=== PATIENT | female | born 1975 | race Caucasian/White ===

== ENCOUNTER 2016-06-27 21:05 | Emergency (ER) | payer OTHER ==
[~2016-06-27] VITALS: Ht 160 cm; Wt 77.0 kg
[~2016-06-27 21:05] MED LIST: DIFL150T PO; DOXY100T PO; LORA10TA7 PO; Z.0.BCPILL PO
[2016-06-27 21:08] VITALS: BP 133/88; PULSE 89; RESP 15; TEMP 98.4; O2SAT 100
--- NOTE | 2016-06-27 22:53 | PD ---
HPI Chief Complaint: Bite or Sting Time Seen by Provider: 22:43 Travel History International Travel<30 days: No Contact w/Intl Traveler<30days: No Traveled to known affect area: No History of Present Illness HPI 41-year-old female presents for evaluation of dog bites. The patient reports that this afternoon her accidentally hit their 14-year-old dog. When the patient went to check on the dog the dog was frightened and bit her on the left hand. Been sustained a puncture wound on her right third finger when she was trying to open his mouth. She then brought the dog to the [facility]ares s[facility] and she came here. She is having pain and swelling in the left hand. Pain is a throbbing pain that is constant and worse with movement. Pain is worse with movement of the second and third fingers. No numbness or tingling. Last tetanus vaccination unknown. No other complaints. PFSH Past Medical History Medical History: Denies Significant Hx Diminished Hearing: No Immunizations Current: Yes (UNKNOWN) ?: Not Ectopic : Yes Past Surgical History Gynecologic Surgery: Yes (1995 ECTOPIC PREG) Hysterectomy: Yes Other Surgery: Yes (2004 RIGHT BREAST BX) Social History Alcohol Use: Yes (SOCIALLY) Tobacco Use: No Substance Use: No Allergies-Medications (Allergen,Severity, Reaction): Uncoded Allergies: ADVIL GEL (Allergy, Severe, THROAT/TOUNGE SWELLING, 06/27/16) WOOL (Allergy, Intermediate, 02/13/11) PAPER TAPE (Allergy, Unknown, BLISTERS, 01/29/03) Reported Meds & Prescriptions Reported Meds & Active Scripts Active Fluconazole 150 Mg Tab 150 Mg PO ONCE Augmentin (Amoxicillin-Clavulanate) 875-125 mg Tab 875 Mg PO BID 7 Days not for use in CrCl <30 ml/min. Lortab (Hydrocodone-Acetaminophen) 5-325 Mg Tab 1 Tab PO Q6H PRN Review of Systems Except as stated in HPI: all other systems reviewed are Neg Musculoskeletal: Positive: Limited ROM Skin: Positive Other (positive for puncture wounds, pain, bleeding, bruising) Neurologic: No: Paresthesia Physical Exam Narrative GENERAL: Well-nourished female who appears anxious. SKIN: Warm and dry. Puncture wounds noted to the left hand and right third finger. No large lacerations. No evidence of extensor tendon or flexor tendon injury. There is some bruising to the dorsal left hand. HEAD: Atraumatic. Normocephalic. EYES: Pupils equal and round. No scleral icterus. No injection or drainage. ENT: No nasal bleeding or discharge. Mucous membranes pink and moist. NECK: Trachea midline. No JVD. CARDIOVASCULAR: Regular rate and rhythm. No murmur appreciated. RESPIRATORY: No accessory muscle use. Clear to auscultation. Breath sounds equal bilaterally. MUSCULOSKELETAL: Skin as noted above with difficulty performing flexion and extension of the left second and third fingers secondary to pain. No evidence of extensor tendon puncture wound on examination. NEUROLOGICAL: Awake and alert. No obvious cranial nerve deficits. Motor grossly within normal limits. Normal speech. Data Data Last Documented VS Vital Signs Date Time Temp Pulse Resp B/P Pulse Ox O2 Delivery O2 Flow Rate FiO2 06/27/16 23:20 52 15 103/56 100 Room Air 06/27/16 21:08 98.4 Orders Acetamin-Hydrocod 325-5 Mg ([place] 5-325 (06/27/16 23:00) Ondansetron Odt (Zofran Odt) (06/27/16 23:00) Amoxicil-Clavulanate (Augmentin) (06/27/16 23:00) Wound Care (06/27/16 22:48) Finger (Dol2ntd) (06/27/16 ) Hand, Complete ([id number]) (06/27/16 ) Tetanus/Diphtheria Tox Adult (Tetanus/Di (06/27/16 23:00) MDM Medical Decision Making Medical Screen Exam Complete: Yes Emergency Medical Condition: Yes Medical Record Reviewed: Yes Differential Diagnosis Puncture wound, contusion, fracture, foreign body, tendon injury Narrative Course X-ray imaging of the left hand and right third finger have been ordered and are unremarkable. The hands were soaked in Betadine for an hour. The patient was given pain medication as well as Augmentin. Tetanus status updated. Local wound care provided. Given the bruising and limited range of motion, she is encouraged to follow up with a hand surgeon for recheck in the next few days. She understands that a dog bites to the hand carry a risk of infection and so she is being placed prophylactically on Augmentin. She requests prescription for fluconazole because she gets yeast infections whenever she is on antibiotics. She is stable for discharge. Discussed signs and symptoms that would warrant return to the emergency room. Diagnosis Primary Impression: Dog bite of hand Qualified Code: S61.452A - Dog bite of hand, left, initial encounter Referrals: Ann Page MD Additional Instructions: Wash the wounds 1-2 times daily with soap and water and apply antibiotic cream and clean bandages. Medication as prescribed. Follow up with a hand surgeon such as Dr. Page in the next few days. Return for any signs of active infection such as increasing area of redness around the wounds, pus coming from the wounds, red streaks up the arm, fevers. Med/Other Pt SpecificInfo: Prescription(s) given, Wound Care Scripts Fluconazole 150 Mg [id number] Mg PO ONCE #2 TAB Ref 0 Prov:Jason Oscar MD 06/27/16 Amoxicillin-Clavulanate (Augmentin)875-125 mg [id number] Mg PO BID 7 Days Ref 0 not for use in CrCl <30 ml/min. Prov:Jason Oscar MD 06/27/16 Hydrocodone-Acetaminophen (Lortab)5-325 Mg Tab1 Tab PO Q6H PRN (PAIN) #15 TAB Ref 0 Prov:Jason Oscar MD 06/27/16 Disposition: 01 DISCHARGE HOME Condition: Stable Perry Pantoja Jun 27, 2016 22:53
[2016-06-27] MEDS ORDERED: ACETAMINOPHEN/HYDROcodone 325 MG/5 MG TAB PO ONE (23:00)
[2016-06-27] MEDS ORDERED: TETANUS/DIPHTHERIA TOXOID ADULT 0.5 ML VIAL IM ONE (23:00)
[2016-06-27] MEDS ORDERED: ONDANSETRON ODT 4 MG TAB PO ONE (23:00)
[2016-06-27] MEDS ORDERED: AMOXICILLIN/CLAVULANATE K 875 MG TAB PO ONE (23:00)
[2016-06-27 23:20] VITALS: BP 103/56; PULSE 52; RESP 15; O2SAT 100
--- NOTE | 2016-06-27 23:22 | RADRPT ---
EXAM DATE/TIME: 06/27/2016 23:11 [facility] COMPARISON: No previous studies available for comparison. INDICATIONS : Dog bite laceration to left hand today MEDICAL HISTORY : None. SURGICAL HISTORY : None. ENCOUNTER: Initial ACUITY: 1 day PAIN SCORE: 10/10 LOCATION: Left posterior hand FINDINGS: Three view examination of the left hand demonstrates no soft tissue swelling, dislocation, or fractur e. The carpal bones appear intact. The interphalangeal and metacarpophalangeal joints are intact. Bony mineralization is normal. No radiopaque foreign body observed. CONCLUSION: Unremarkable examination of the left hand. Andrea Massey Jr., MD on June 27, 2016 at 23:20 Board Certified Radiologist. This report was verified electronically.
--- NOTE | 2016-06-27 23:23 | RADRPT ---
EXAM DATE/TIME: 06/27/2016 23:13 [facility] COMPARISON: No previous studies available for comparison. INDICATIONS : Dog bite laceration to distal right third digit today MEDICAL HISTORY : None. SURGICAL HISTORY : None. ENCOUNTER: Initial ACUITY: 1 day PAIN SCORE: 10/10 LOCATION: Right distal 3rd digit FINDINGS: Examination of the third digit of the right hand demonstrates no evidence of fracture or dislocation. No radiopaque foreign bodies are seen. The soft tissues are intact. CONCLUSION: Unremarkable examination of the right third finger. Andrea Massey Jr., MD on June 27, 2016 at 23:21 Board Certified Radiologist. This report was verified electronically.
[2016-06-27] MEDS ORDERED: FLUC150T PO ×3 (23:51→23:58)
[2016-06-27] MEDS ORDERED: HYDR-3533 PO ×5 (23:51→23:57)
[2016-06-27] MEDS ORDERED: AUGM875T PO ×3 (23:51→23:58)
[2016-06-28] MEDS ORDERED: IBUP-988 PO (17:28)
== END 2016-06-28 01:05 | disposition home or self-care (01) ==
LOC: NEPK 21:05
DX: S61.452A Open bite of left hand, initial encounter (principal); W54.0XXA Bitten by dog, initial encounter; Z23 Encounter for immunization
CPT/HCPCS: 73130; 73140; 90471; 90714

== ENCOUNTER 2016-06-28 16:36 | Inpatient (IN) | payer OTHER ==
[~2016-06-28] VITALS: Ht 160 cm; Wt 81.6 kg
[~2016-06-28 16:36] MED LIST changes: +AUGM875T PO; -DIFL150T PO; -DOXY100T PO; +FLUC150T PO; +HYDR-3533 PO; +KETOROLAC TROMETHAMINE 60 MG/2 ML (IM) VIAL IM ONE; +LACTATED RINGER'S 1000 ML INJ 1,000 ML IV ONE; -LORA10TA7 PO; +ONDANSETRON HCL 4 MG/2 ML VIAL IV PUSH ONE; +PROPOFOL 200 MG/20 ML AMP IV ONE; -Z.0.BCPILL PO
[2016-06-28 17:05] VITALS: BP 107/59; PULSE 76; RESP 16; TEMP 98.4; O2SAT 100
[2016-06-28] MEDS ORDERED: POVIDONE IODINE 5% (ANTISEPSIS KIT) 4 APPLICATIONS EACH NARE PRN (17:15)
[2016-06-28] MEDS ORDERED: ceFAZolin 1,000 MG/NS 100 ML IV SCH ×2 (17:15)
[2016-06-28] MEDS ORDERED: CHLORHEXIDINE GLUCONATE 2 % 1 PACK (2 CLOTHS) TOPICAL PRN (17:15)
[2016-06-28] MEDS ORDERED: SODIUM CHLORID 0.9% 500 ML IV PRN (17:15)
[2016-06-28] MEDS ORDERED: LACTATED RINGER'S 1000 ML IV PRN (17:15)
[2016-06-28] MEDS ORDERED: METOPROLOL TARTRATE 25 MG TAB PO PRN (17:15)
[2016-06-28] MEDS ORDERED: INSULIN HUMAN REGULAR 1,000 UNITS/10 ML VIAL SQ PRN (17:15)
[2016-06-28] MEDS ORDERED: IBUP-988 PO (17:28)
[2016-06-28] MEDS ORDERED: BUPIVACAINE HCL PF 0.5% 30 ML VIAL ONE (17:41)
[2016-06-28] MEDS ORDERED: LIDOCAINE HCL 2% 50 ML VIAL ONE (17:41)
[2016-06-28] MEDS ORDERED: MUPIROCIN 2% OINT 22 GM TUBE ONE (17:42)
[2016-06-28] MEDS ORDERED: GENTAMICIN SULFATE 80 MG/2 ML VIAL ONE ×2 (17:42)
[2016-06-28] MEDS ORDERED: BACITRACIN TOP OINT 15 GM TUBE ONE (17:42)
[2016-06-28] MEDS ORDERED: FAMOTIDINE 20 MG/2 ML VIAL ONE (18:15)
[2016-06-28] MEDS ORDERED: MIDAZOLAM HCL 2 MG/2 ML VIAL ONE ×2 (18:15→19:54)
[2016-06-28] MEDS ORDERED: ACETAMINOPHEN 1000 MG/100 ML VIAL IV ONE (18:44)
[2016-06-28] MEDS ORDERED: MORPHINE SULFATE 4 MG/ML INJ ONE (19:54)
[2016-06-28] MEDS ORDERED: *morphine SULFATE 8 MG/ML PERIprocedure ONLY ONE (20:09)
--- NOTE | 2016-06-28 21:02 | HHI.HP ---
[facility]ician Crow Green M.D. Admission Diagnosis dog bite left hand infection Diagnoses: (1) Dog bite of hand Diagnosis: Principal Chief Complaint: left hand dog bite Travel History International Travel<30 Days: No Contact w/Intl Traveler <30 Da: No Traveled to Known Affected Are: No History of Present Illness patient is a 41 y/o female with no significant past medical history who was seen in ER yesterday because of a dog bite on the left hand. she was discharged home with Augmentin and pain medications. she was seen by hand surgery today and advised to come back to the hospital. she underwent I/D of the left index finger and repair of the lacerataion of the left hand today. she denies any fever or chills and currently she denies any significant pain to the left hand. she denies any other symptoms otherwise. Review of Systems Constitutional: DENIES: Fever, Weight loss, Chills, Night Sweats Eyes: DENIES: Blurred vision, Diplopia, Vision loss, Double Vision Ears, nose, mouth, throat: DENIES: Tinnitus, Vertigo, Throat pain, Epistaxis Respiratory: DENIES: Apneas, Cough, Snoring, Wheezing, Hemoptysis, Sputum production, Shortness of breath Cardiovascular: DENIES: Chest pain, Palpitations, Syncope, Dyspnea on Exertion , PND, Lower Extremity Edema, Orthopnea, Claudication Gastrointestinal: DENIES: Abdominal pain, Black stools, Bloody stools, Constipation, Diarrhea, Nausea, Vomiting, Difficulty Swallowing, Anorexia Genitourinary: DENIES: Urinary frequency, Urgency, Hematuria, Dysuria Musculoskeletal: COMPLAINS OF: Joint pain (left hand), DENIES: Muscle aches, Stiffness, Joint Swelling Integumentary: DENIES: Rash Neurologic: DENIES: Abnormal gait, Headache, Localized weakness, Paresthesias, Seizures, Speech Problems, Tremor, Poor Balance Psychiatric: DENIES: Anxiety, Confusion, Mood changes, Depression, Hallucinations, Agitation, Suicidal Ideation, Homicidal Ideation, Delusions Past Family Social History Past Medical History not significant. Past Surgical History carpal tunnel surgery Reported Medications none as a regular basis. Allergies: Uncoded Allergies: ADVIL GEL (Allergy, Severe, THROAT/TOUNGE SWELLING, 06/27/16) WOOL (Allergy, Intermediate, 02/13/11) PAPER TAPE (Allergy, Unknown, BLISTERS, 01/29/03) Active Ordered Medications Current Medications Lactated Ringer's 1,000 ml @ 30 mls/hr Q24H PRN IV SEE LABEL COMMENTS Last administered on 06/28/16 17:25; Start 06/28/16 at 17:15; Stop 07/01/16 at 17:14 Sodium Chloride (NS 500 ml Inj) 500 ml @ 30 mls/hr [id number] PRN IV SEE LABEL COMMENTS; Start 06/28/16 at 17:15; Stop 07/01/16 at 17:14 Metoprolol Tartrate (Lopressor) 25 mg ORNAMENTAL BRICK INSTALLER PRN PO SEE LABEL COMMENTS; Start 06/28/16 at 17:15; Stop 07/01/16 at 17:14 Povidone Iodine (Betadine 5% Antisepsis Kit) 1 applic ORNAMENTAL BRICK INSTALLER PRN EACH NARE SEE LABEL COMMENTS; Start 06/28/16 at 17:15; Stop 07/01/16 at 17:14 Chlorhexidine Gluconate (Chlorhexidine 2% Cloth) 3 pack ORNAMENTAL BRICK INSTALLER PRN TOPICAL SEE LABEL COMMENTS; Start 06/28/16 at 17:15; Stop 07/01/16 at 17:14 Insulin Human Regular See Protocol Table ... ORNAMENTAL BRICK INSTALLER PRN SQ SEE PROTOCOL TABLE ; Start 06/28/16 at 17:15; Stop 07/01/16 at 17:14 Cefazolin Sodium/ Sodium Chloride (Ancef Inj/NS Inj) 100 ml @ 200 mls/hr ORNAMENTAL BRICK INSTALLER IV ; Start 06/28/16 at 17:15; Stop 07/01/16 at 17:14 Bupivacaine HCl (Marcaine Pf 0.5% Inj) 30 ml STK-MED ONCE .ROUTE Last administered on 06/28/16 19:35; Start 06/28/16 at 17:41; Stop 06/28/16 at 17:42; Status DC Lidocaine HCl (Xylocaine 2% Inj) 50 ml STK-MED ONCE .ROUTE Last administered on 06/28/16 19:37; Start 06/28/16 at 17:41; Stop 06/28/16 at 17:42; Status DC Bacitracin (Baciguent Oint) 15 applic STK-MED ONCE .ROUTE ; Start 06/28/16 at 17: 42; Stop 06/28/16 at 17:43; Status DC Gentamicin Sulfate (Gentamicin Inj) 80 mg STK-MED ONCE .ROUTE ; Start 06/28/16 at 17:42; Stop 06/28/16 at 17:43; Status DC Mupirocin (Bactroban 2% Oint) 22 applic STK-MED ONCE .ROUTE ; Start 06/28/16 at 17:42; Stop 06/28/16 at 17:43; Status DC Gentamicin Sulfate (Gentamicin Inj) 80 mg STK-MED ONCE .ROUTE ; Start 06/28/16 at 17:42; Stop 06/28/16 at 17:43; Status DC Midazolam HCl (Versed Inj) 2 mg STK-MED ONCE .ROUTE ; Start 06/28/16 at 18:15; Stop 06/28/16 at 18:16; Status DC Famotidine (Pepcid Inj) 20 mg STK-MED ONCE .ROUTE ; Start 06/28/16 at 18:15; Stop 06/28/16 at 18:16; Status DC Acetaminophen (Ofirmev Inj) 1,000 mg STK-MED ONCE IV ; Start 06/28/16 at 18:44; Stop 06/28/16 at 18:45; Status DC Midazolam HCl (Versed Inj) 2 mg STK-MED ONCE .ROUTE ; Start 06/28/16 at 19:54; Stop 06/28/16 at 19:55; Status DC Fentanyl Citrate (fentaNYL INJ) 200 mcg STK-MED ONCE .ROUTE ; Start 06/28/16 at 19:54; Stop 06/28/16 at 19:55; Status DC Morphine Sulfate (Morphine Inj) 8 mg STK-MED ONCE .ROUTE ; Start 06/28/16 at 19: 54; Stop 06/28/16 at 19:55; Status DC Morphine Sulfate (*morphine INJ PERIprocedure ONLY) 8 mg STK-MED ONCE .ROUTE Last administered on 06/28/16t 20:09; Start 06/28/16 at 20:09; Stop 06/28/16 at 20: 10; Status DC Family History not relevant to this admission. Social History no smoking or drinking. Physical Exam Vital Signs Vital Signs Date Time Temp Pulse Resp B/P Pulse Ox O2 Delivery O2 Flow Rate FiO2 06/28/16 20:30 69 22 109/87 94 Nasal Cannula 2 06/28/16 20:15 88 22 120/78 93 Nasal Cannula 2 06/28/16 20:00 88 22 120/70 93 Nasal Cannula 2 06/28/16 19:47 98.4 87 22 100/70 96 Nasal Cannula 2 06/28/16 17:05 98.4 76 16 107/59 100 Physical Exam GENERAL: This is a well-nourished, well-developed patient, in no apparent distress. HEAD: Atraumatic. Normocephalic. No temporal or scalp tenderness. EYES: Pupils equal round and reactive. Extraocular motions intact. No scleral icterus. No injection or drainage. ENT: Nose without bleeding, purulent drainage or septal hematoma. Throat without erythema, tonsillar hypertrophy or exudate. Uvula midline. Airway patent. NECK: Trachea midline. No JVD or lymphadenopathy. Supple, nontender, no meningeal signs. CARDIOVASCULAR: Regular rate and rhythm without murmurs, gallops, or rubs. RESPIRATORY: Clear to auscultation. Breath sounds equal bilaterally. No wheezes , rales, or rhonchi. GASTROINTESTINAL: Abdomen soft, non-tender, nondistended. No hepato-splenomegaly , or palpable masses. No guarding. MUSCULOSKELETAL: left hand covered with clean dressing. NEUROLOGICAL: Awake and alert. Cranial nerves II through XII intact. Motor and sensory grossly within normal limits. Five out of 5 muscle strength in all muscle groups. Normal speech. Assessment and Plan Assessment and Plan A/P - dog bite -left hand- s/p I/D of the left index finger and repair of the laceration on the left hand continue with pain control- start IV Unasyn- ID consulted. hand surgery following. Discussed Condition With the patient and RN at the bedside. Physician Certification 2 Midnight Certification Type: Admission for Inpatient Services Order for Inpatient Services The services are ordered in accordance with Medicare regulations or non- Medicare payer requirements, as applicable. In the case of services not specified as inpatient-only, they are appropriately provided as inpatient services in accordance with the 2-midnight benchmark. Estimated LOS (days): 2 days is the estimated time the patient will need to remain in the hospital, assuming treatment plan goals are met and no additional complications. Post-Hospital Plan: Home Problem Qualifiers (1) Dog bite of hand: Katie Johnson MD Jun 28, 2016 21:02
[2016-06-28] MEDS ORDERED: HYDROmorphone HCL PF 1 MG/ML VIAL IV PUSH PRN (21:15)
[2016-06-28] MEDS ORDERED: ACETAMINOPHEN 325 MG TAB PO PRN (21:15)
[2016-06-28] MEDS ORDERED: ACETAMINOPHEN/HYDROcodone 325 MG/5 MG TAB PO PRN (21:15)
--- NOTE | 2016-06-28 21:45 | PD.ORT.PN ---
Subjective Subjective Remarks Patient reports pain controlled Objective Vitals Vital Signs Date Time Temp Pulse Resp B/P Pulse Ox O2 Delivery O2 Flow Rate FiO2 06/28/16 20:58 98.4 64 22 112/77 94 Nasal Cannula 2 06/28/16 20:45 64 22 112/77 94 Nasal Cannula 2 06/28/16 20:30 69 22 109/87 94 Nasal Cannula 2 06/28/16 20:15 88 22 120/78 93 Nasal Cannula 2 06/28/16 20:00 88 22 120/70 93 Nasal Cannula 2 06/28/16 19:47 98.4 87 22 100/70 96 Nasal Cannula 2 06/28/16 17:05 98.4 76 16 107/59 100 I/O 06/27/16 06/27/16 06/27/16 06/28/16 06/28/16 06/28/16 07:00 15:00 23:00 07:00 15:00 23:00 Intake Total 1130 ml Output Total 10 ml Balance 1120 ml Intake IV Total 30 ml Other 1100 ml Output Estimated Blood Loss 10 ml Objective Remarks dressing c/d/i, <2 sec capillary refill left index finger Assessment & Plan Assessment and Plan POD0 s/p I&D abscess left hand and left index finger flexor tendon sheath, placement of packing following dog bite -Purulence around digital nerve but nerve intact, purulence in flexor tendon sheath -Admit to medicine for IV Unasyn, follow cultures, appreciate ID recommendations -Packing in place in Dr Camilo bear to change dressing 06/29 -OT for ROM left index finger -likely outpatient followup on Saturday pending hospital course and Ab regimen Ann Page MD Jun 28, 2016 21:45
[2016-06-28] MEDS: ACETAMINOPHEN/HYDROcodone 325 MG/5 MG TAB PO PRN (22:14)
[2016-06-28] MEDS: AMPICILLIN-SULBACTAM INJ 3 GM in SODIUM CHLORIDE 0.9% INJ 100 ML IV SCH (22:14)
[2016-06-29] VITALS (7 sets, daily range): BP systolic 90–116; BP diastolic 51–61; PULSE 68–84; RESP 18–20; TEMP 96.4–98.6; O2SAT 94–97
[2016-06-29] MEDS ORDERED: diphenhydrAMINE HCL 50 MG CAP PO ONE (02:15)
[2016-06-29] MEDS: AMPICILLIN-SULBACTAM INJ 3 GM in SODIUM CHLORIDE 0.9% INJ 100 ML IV SCH ×4 (04:07→22:00)
[2016-06-29] MEDS: ACETAMINOPHEN/HYDROcodone 325 MG/5 MG TAB PO PRN ×5 (04:12→22:10)
[2016-06-29 11:57] LABS: BASOPHIL % 0.3 % (0.0-2.0); EOSINOPHIL % 0.1 % (0.0-4.0); HEMO FLAGS DIFF FINAL; LYMPH % 20.6 % (9.0-44.0); MEAN CORPUSCULAR HEMOGLOBIN 29.8 PG (27.0-34.0); MEAN CORPUSCULAR HGB CONC 33.5 % (32.0-36.0); MONO % 6.4 % (0.0-8.0); NEUT % 72.6 % (16.0-70.0); PLATELET COUNT 288 TH/MM3 (150-450); RED BLOOD COUNT 3.82 MIL/MM3 (4.00-5.30); RED CELL DISTRIBUTION WIDTH 13.5 % (11.6-17.2); WHITE BLOOD COUNT 9.6 TH/MM3 (4.0-11.0)
[2016-06-29 12:17] LABS: ALT (GPT) 12 U/L (10-53); ANION GAP 7 MEQ/L (5-15); AST (GOT) 9 U/L (15-37); BICARBONATE 25.4 MEQ/L (21.0-32.0); BLOOD UREA NITROGEN 8 MG/DL (7-18); CHLORIDE 109 MEQ/L (98-107); GLOMERULAR FILTRATION RATE 94 ML/MIN (>89); POTASSIUM 3.8 MEQ/L (3.5-5.1); SODIUM (NA) 141 MEQ/L (136-145)
[2016-06-29 12:19] LABS: ALKALINE PHOSPHATASE 63 U/L (45-117); TOTAL BILIRUBIN ADULT 0.3 MG/DL (0.2-1.0)
--- NOTE | 2016-06-29 12:53 | PD.CONS ---
History of Present Illness Service Infectious disease Consult Requested By Dr. Kim Page Reason for Consult Evaluate patient with dog bite to the left hand Primary Care Physician Crow Green M.D. Diagnoses: History of Present Illness Patient seen and examined. Records reviewed. Patient is a 41-year-old female, presented to the hospital for further evaluation of dog bites to her hands. Patient has a 14-year-old dog, who was accidentally hit by the . She was checking on the dog and the dog bit her on her left hand. He wouldn't let go of her left hand, so she tried opening the dog's mouth and accidentally bit on her right hand. She took the dog to be what evaluated. And after that she went to the emergency room, and she was told to clean all her wounds, and she was given a prescription for Augmentin. Patient the following day started having problem with significant swelling and pain, and she was seen by hand surgery who did surgery on her last night. She had I&D of the abscess on her left palm as well as some debridement on her left index finger. Has been no fever chills or sweats. She is complaining of significant pain on her left hand. She has not been febrile. Her WBC is normal. Her dog's immunization are up to date. Patient also has received tetanus immunization Infectious disease consultation is requested to evaluate the patient. Review of Systems Constitutional: DENIES: Fever, Chills Eyes: DENIES: Eye pain Ears, nose, mouth, throat: DENIES: Nasal discharge, Throat pain, Ear Pain, Running Nose, Sinus Pain Respiratory: DENIES: Cough, Shortness of breath Cardiovascular: DENIES: Chest pain Gastrointestinal: DENIES: Abdominal pain, Diarrhea, Nausea, Vomiting Genitourinary: DENIES: Dysuria Musculoskeletal: COMPLAINS OF: Joint pain, Joint Swelling Integumentary: DENIES: Rash Neurologic: DENIES: Headache Psychiatric: DENIES: Confusion Past Family Social History Allergies: Uncoded Allergies: ADVIL GEL (Allergy, Severe, THROAT/TOUNGE SWELLING, 06/27/16) WOOL (Allergy, Intermediate, 02/13/11) PAPER TAPE (Allergy, Unknown, BLISTERS, 01/29/03) Past Medical History 2 pregnancies 1 ectopic Past Surgical History Hysterectomy Breast biopsy Active Ordered Medications Tylenol [place] Unasyn Dilaudid Insulin Lopressor Social History No smoking Social ETOH No drugs Physical Exam Vital Signs Vital Signs Date Time Temp Pulse Resp B/P Pulse Ox O2 Delivery O2 Flow Rate FiO2 06/29/16 11:55 97.7 84 18 90/53 96 06/29/16 09:27 116/57 06/29/16 07:30 97.1 68 18 90/55 96 06/29/16 04:39 94 21 06/29/16 00:00 96.6 71 20 104/59 97 06/28/16 20:58 98.4 64 22 112/77 94 Nasal Cannula 2 06/28/16 20:45 64 22 112/77 94 Nasal Cannula 2 06/28/16 20:30 69 22 109/87 94 Nasal Cannula 2 06/28/16 20:15 88 22 120/78 93 Nasal Cannula 2 06/28/16 20:00 88 22 120/70 93 Nasal Cannula 2 06/28/16 19:47 98.4 87 22 100/70 96 Nasal Cannula 2 06/28/16 17:05 98.4 76 16 107/59 100 Physical Exam GENERAL: This is a well-nourished, well-developed female, awake and alert, in no apparent distress. SKIN: No rashes, ecchymoses or lesions. Cool and dry. HEAD: Atraumatic. Normocephalic. No temporal or scalp tenderness. EYES: [place] conjunctivae. Pupils equal round and reactive. Extraocular motions intact. No scleral icterus. No injection or drainage. ENT: Nose without bleeding, or purulent drainage. Moist oral mucosa. Throat without erythema, or exudate. NECK: Trachea midline. No JVD or lymphadenopathy. Supple, nontender, no meningeal signs. CARDIOVASCULAR: Regular rate and rhythm without murmurs, gallops, or rubs. RESPIRATORY: Clear to auscultation. Breath sounds equal bilaterally. No wheezes , rales, or rhonchi. GASTROINTESTINAL: Abdomen soft, non-tender, nondistended. No hepato-splenomegaly , or palpable masses. No guarding. MUSCULOSKELETAL: Lower extremities without clubbing, cyanosis, or edema. No joint effusion. No calf tenderness. L hand - has dry and intact dressing, this is from surgery last night, and I did not remove the dressing. There is ecchymoses and some mild swelling of her LMF with dry wound, no redness. R hand - has 2 bite macdonald in her 2 fingers, with no evidence of infection NEUROLOGICAL: Awake and alert. Cranial nerves II through XII intact. Motor and sensory grossly within normal limits. Normal speech. PSYCH: Normal affect, calm and cooperative LINE: PIV with no evidence of infection Laboratory Laboratory Tests Test 06/29/16 11:40 White Blood Count 9.6 Red Blood Count 3.82 Hemoglobin 11.4 Hematocrit 34.0 Mean Corpuscular Volume 89.0 Mean Corpuscular Hemoglobin 29.8 Mean Corpuscular Hemoglobin 33.5 Concent Red Cell Distribution Width 13.5 Platelet Count 288 Mean Platelet Volume 7.9 Neutrophils (%) (Auto) 72.6 Lymphocytes (%) (Auto) 20.6 Monocytes (%) (Auto) 6.4 Eosinophils (%) (Auto) 0.1 Basophils (%) (Auto) 0.3 Neutrophils # (Auto) 7.0 Lymphocytes # (Auto) 2.0 Monocytes # (Auto) 0.6 Eosinophils # (Auto) 0.0 Basophils # (Auto) 0.0 CBC Comment DIFF FINAL Differential Comment Sodium Level 141 Potassium Level 3.8 Chloride Level 109 Carbon Dioxide Level 25.4 Anion Gap 7 Blood Urea Nitrogen 8 Creatinine 0.68 Estimat Glomerular Filtration 94 Rate Random Glucose 127 Calcium Level 8.6 Total Bilirubin 0.3 Aspartate Amino Transf 9 (AST/SGOT) Alanine Aminotransferase 12 (ALT/SGPT) Alkaline Phosphatase 63 Total Protein 6.5 Albumin 3.3 Date/Time Procedure Status Source Growth 06/28/16 19:00 Gram Stain - Final Resulted Wound Hand 06/28/16 19:00 Wound Culture Resulted Wound Hand Pending 06/28/16 19:00 Fungal Smear - Final Resulted Wound Hand NO FUNGAL ELEMENTS SEEN. 06/28/16 19:00 Fungal Culture Resulted Wound Hand Pending 06/28/16 19:00 Acid Fast Stain Received Wound Hand Pending 06/28/16 19:00 Mycobacterial Culture Received Wound Hand Pending Result Diagram: 06/29/16 1140 06/29/16 1140 Imaging Xray of hand and finger 06/27 - unremarkable Assessment and Plan Assessment and Plan IMPRESSION Infection L hand from dog bite - S/P I and D - pathogens would be oral rita of dogs, and also skin rita from patient RECOMMENDATION Follow C/S and adjust Abx Will try to examine her hand when ok with surgery Monitor progress Once C/S available, if there is suitable oral Abx, can be changed to oral Abx Thank you for this consultation Sadaf Ulloa MD Jun 29, 2016 12:53
--- NOTE | 2016-06-29 15:45 | HHI.PR ---
Subjective Remarks c/o some pain in left hand denies fevers/chills concerned because her blood pressure is low. no fevers and chills Objective Vitals Vital Signs Date Time Temp Pulse Resp B/P Pulse Ox O2 Delivery O2 Flow Rate FiO2 06/29/16 11:55 97.7 84 18 90/53 96 06/29/16 09:27 116/57 06/29/16 07:30 97.1 68 18 90/55 96 06/29/16 04:39 94 21 06/29/16 00:00 96.6 71 20 104/59 97 06/28/16 20:58 98.4 64 22 112/77 94 Nasal Cannula 2 06/28/16 20:45 64 22 112/77 94 Nasal Cannula 2 06/28/16 20:30 69 22 109/87 94 Nasal Cannula 2 06/28/16 20:15 88 22 120/78 93 Nasal Cannula 2 06/28/16 20:00 88 22 120/70 93 Nasal Cannula 2 06/28/16 19:47 98.4 87 22 100/70 96 Nasal Cannula 2 06/28/16 17:05 98.4 76 16 107/59 100 I/O 06/28/16 06/28/16 06/28/16 06/29/16 06/29/16 06/29/16 07:00 15:00 23:00 07:00 15:00 23:00 Intake Total 1610 ml Output Total 10 ml Balance 1600 ml Intake Oral 480 ml IV Total 30 ml Other 1100 ml Output Estimated Blood Loss 10 ml # Voids 1 # Bowel Movements 0 Result Diagram: 06/29/16 1140 06/29/16 1140 Objective Remarks GENERAL: AAOx3,NAD SKIN: Warm and dry. HEAD: Normocephalic. EYES: No scleral icterus. No injection or drainage. NECK: Supple, trachea midline. No JVD or lymphadenopathy. CARDIOVASCULAR: Regular rate and rhythm without murmurs, gallops, or rubs. RESPIRATORY: Breath sounds equal bilaterally. No accessory muscle use. GASTROINTESTINAL: Abdomen soft, non-tender, nondistended. MUSCULOSKELETAL: No cyanosis, or edema. Left hand is dressed. Dressing is C/D/ I. R middle finger has some band aids which also look clean. Capillary refill in the hand is < 2 seconds. Sensation is intact. BACK: Nontender without obvious deformity. No CVA tenderness. Procedures Incision and drainage of left index finger and left hand repair. Medications and IVs Current Medications Medications (Trade) Dose Ordered Sig/Ernestina Route Start Time Stop Time Status Last Admin Lactated Ringer's 1,000 ml @ 30 mls/hr Q24H PRN IV 06/28/16 17:15 07/01/16 17:14 06/28/16 17:25 (NS 500 ml Inj) 500 ml @ 30 mls/hr [id number] PRN IV 06/28/16 17:15 07/01/16 17:14 ([place] 5-325 Mg) 1 tab Q4H PRN PO 06/28/16 21:15 06/29/16 13:23 ([place] 5-325 Mg) 2 tab Q4H PRN PO 06/28/16 21:15 (Dilaudid Pf Inj) 0.2 mg Q4H PRN IV PUSH 06/28/16 21:15 Acetaminophen 650 mg 650 mg Q4H PRN PO 06/28/16 21:15 Ampicillin Sodium/ Sulbactam Sodium 3 gm/Sodium Chloride 100 ml @ 200 mls/hr Q6H IV 06/28/16 22:00 06/29/16 09:31 (NS 1000 ml Inj) 1,000 ml @ 999 mls/hr BOLUS ONCE IV 06/29/16 16:15 06/29/16 17:15 UNV Urinary Catheter: No Vascular Central Line Catheter: No A/P Problem List: (1) Dog bite of hand ICD Code: S61.459A Status: Acute Plan: sp left index finger incision and drainage and repair of laceration of the left hand. Continue IV Unasyn wound culture showed immature growth. No fungal elements seen on fungal smear, no acid fast bacilli seen gram stain negative and wound culture without any growth ID following Continue pain control (2) Hypotension ICD Code: I95.9 Status: Acute Plan: Will give 1 liter of IV normal saline bolus. Will place on maintenance IV fluids. Assessment and Plan GI Prophylaxis: Will add PPI DVT prophylaxis: scd's, Discharge Planning Pending ID and hand surgery clearance Problem Qualifiers (1) Dog bite of hand: (2) Hypotension: Qualified Code: I95.9 - Hypotension, unspecified hypotension type Shadi Greer MD Jun 29, 2016 15:45
[2016-06-29] MEDS ORDERED: SODIUM CHLOR 0.9% 1000 ML INJ 1,000 ML IV ONE (16:15)
[2016-06-29] MEDS: NS + KCL 20 MEQ INJ 1,000 ML IV SCH (16:53)
--- NOTE | 2016-06-29 19:09 | PD.ORT.PN ---
Subjective Subjective Remarks Patient reports pain controlled. Denies paresthesias Objective Vitals Vital Signs Date Time Temp Pulse Resp B/P Pulse Ox O2 Delivery O2 Flow Rate FiO2 06/29/16 15:00 96.4 80 18 94/51 95 06/29/16 11:55 97.7 84 18 90/53 96 06/29/16 09:27 116/57 06/29/16 07:30 97.1 68 18 90/55 96 06/29/16 04:39 94 21 06/29/16 00:00 96.6 71 20 104/59 97 06/28/16 20:58 98.4 64 22 112/77 94 Nasal Cannula 2 06/28/16 20:45 64 22 112/77 94 Nasal Cannula 2 06/28/16 20:30 69 22 109/87 94 Nasal Cannula 2 06/28/16 20:15 88 22 120/78 93 Nasal Cannula 2 06/28/16 20:00 88 22 120/70 93 Nasal Cannula 2 06/28/16 19:47 98.4 87 22 100/70 96 Nasal Cannula 2 I/O 06/28/16 06/28/16 06/28/16 06/29/16 06/29/16 06/29/16 07:00 15:00 23:00 07:00 15:00 23:00 Intake Total 1610 ml Output Total 10 ml Balance 1600 ml Intake Oral 480 ml IV Total 30 ml Other 1100 ml Output Estimated Blood Loss 10 ml # Voids 1 3 # Bowel Movements 0 0 Result Diagram: 06/29/16 1140 06/29/16 1140 Objective Remarks dressing changed. packing in place. significantly improved erythema. function intact fds/fdp but stiffness left index finger, <2 sec capillary refill, good refill to capillary to flap Assessment & Plan Assessment and Plan POD1 s/p I&D abscess left hand and left index finger flexor tendon sheath, placement of packing following dog bite -Purulence around digital nerve but nerve intact, purulence in flexor tendon sheath -Admit to medicine for IV Unasyn, follow cultures, appreciate ID recommendations -Packing in place in palm, dressing changed. Dr Magallanes to see patient 06/30. Ok for ID or OT to change dressing -OT for ROM left index finger -likely outpatient followup on Saturday pending hospital course and Ab regimen. possible d/c on oral Ab Sat or Ann Griffin MD Jun 29, 2016 19:09
[2016-06-29 21:23] LABS: HEMOGLOBIN A1b 0.8 %; HEMOGLOBIN Ao 85.4 %; HEMOGLOBIN F 1.1 %; HEMOGLOBIN LA1C 2.1 %; HEMOGLOBIN P3 3.6 %
[2016-06-30] VITALS: BP 100/55; PULSE 72; RESP 18; TEMP 97.4; O2SAT 97
[2016-06-30] MEDS: ACETAMINOPHEN/HYDROcodone 325 MG/5 MG TAB PO PRN ×3 (02:58→12:15)
[2016-06-30 04:00] VITALS: BP 98/56; PULSE 68; RESP 18; TEMP 97.5; O2SAT 94
[2016-06-30] MEDS: NS + KCL 20 MEQ INJ 1,000 ML IV SCH (04:25)
[2016-06-30] MEDS: AMPICILLIN-SULBACTAM INJ 3 GM in SODIUM CHLORIDE 0.9% INJ 100 ML IV SCH ×4 (06:00→12:17)
[2016-06-30 08:00] VITALS: BP 114/81; PULSE 68; RESP 16; TEMP 98; O2SAT 98
[2016-06-30] MEDS ORDERED: FAMOTIDINE 20 MG TAB PO SCH (09:00)
[2016-06-30] MEDS ORDERED: DOCUSATE SODIUM 50 MG/SENNA 8.6 MG TAB PO SCH (09:00)
[2016-06-30] MEDS ORDERED: MAGNESIUM HYDROXIDE SUSP 30 ML CUP PO PRN (09:45)
--- NOTE | 2016-06-30 09:58 | HHI.PR ---
Subjective Remarks Covering for Dr. Page complains of pain and stiffness of the left index finger no fever able to sleep last night Objective Vital Signs Date Time Temp Pulse Resp B/P Pulse Ox O2 Delivery O2 Flow Rate FiO2 06/30/16 08:00 98.0 68 16 114/81 98 06/30/16 04:00 97.5 68 18 98/56 94 06/30/16 00:00 97.4 72 18 100/55 97 06/29/16 20:00 98.6 80 20 108/61 97 06/29/16 15:00 96.4 80 18 94/51 95 06/29/16 11:55 97.7 84 18 90/53 96 I/O 06/29/16 06/29/16 06/29/16 06/30/16 06/30/16 06/30/16 07:00 15:00 23:00 07:00 15:00 23:00 Intake Total 480 ml Balance 480 ml Intake Oral 480 ml # Voids 5 3 # Bowel Movements 0 examination of the left hand: dressing in place examination after removal of dressing reveals packing in place in the palm swelling around the region noted. swelling of the index finger noted range of motion of the index finger is limited and painful intact sensation distally, abnormal on the radial aspect of the pulp cultures are negative to date Result Diagram: 06/29/16 1140 06/29/16 1140 Assessment and Plan Assessment and Plan 41 year old female s/p I and D left palm and index finger for dog bite Plan: surrounding skin is cleaned with alcohol wipes packing removed no purulence noted dry dressing applied advised regarding range of motion exercises cleared for discharge from hand surgery antibiotics based on ID recommendations follow up with Dr. Page on Saturday07/02/16 Sedrick Hanna MD Jun 30, 2016 09:58
[2016-06-30 12:00] VITALS: BP 116/66; PULSE 73; RESP 18; TEMP 97.4; O2SAT 95
[2016-06-30] MEDS ORDERED: AUGM875T PO (13:21)
[2016-06-30] MEDS ORDERED: HYDR-3533 PO (13:21)
--- NOTE | 2016-06-30 13:21 | HHI.DCPOC ---
Discharge Care Plan Diagnosis: (1) Dog bite of hand (2) Hypotension Goals to Promote Your Health * To prevent worsening of your condition and complications * To maintain your health at the optimal level Directions to Meet Your Goals Take your medications as prescribed Follow your dietary instruction Follow activity as directed Keep your appointments as scheduled Take your immunizations and boosters as scheduled If your symptoms worsen call your PCP, if no PCP go to Urgent Care Center or Emergency Room Smoking is Dangerous to Your Health. Avoid second hand smoke Call the 24-hour hour crisis hotline for domestic abuse at Shadi Greer MD Jun 30, 2016 13:21
--- NOTE | 2016-06-30 13:27 | HHI.DS ---
Discharge Summary Admission Date Jun 28, 2016 at 21:20 Discharge Date: Jun 30, 2016 Admitting Diagnosis dog bite left hand infection (1) Dog bite of hand ICD Code: S61.459A Diagnosis: Principal (2) Hypotension ICD Code: I95.9 Diagnosis: Principal Procedures Incision and drainage of left index finger and left hand repair. Brief History - From Admission patient is a 41 y/o female with no significant past medical history who was seen in ER yesterday because of a dog bite on the left hand. she was discharged home with Augmentin and pain medications. she was seen by hand surgery today and advised to come back to the hospital. she underwent I/D of the left index finger and repair of the lacerataion of the left hand today. she denies any fever or chills and currently she denies any significant pain to the left hand. she denies any other symptoms otherwise. CBC/BMP: 06/29/16 1140 06/29/16 1140 Significant Findings Laboratory Tests Test 06/29/16 11:40 Red Blood Count 3.82 MIL/MM3 (4.00-5.30) Hemoglobin 11.4 GM/DL (11.6-15.3) Hematocrit 34.0 % (35.0-46.0) Neutrophils (%) (Auto) 72.6 % (16.0-70.0) Chloride Level 109 MEQ/L (98-107) Random Glucose 127 MG/DL (74-106) Aspartate Amino Transf 9 U/L (15-37) (AST/SGOT) Albumin 3.3 GM/DL (3.4-5.0) PE at Discharge GENERAL: AAOx3,NAD SKIN: Warm and dry. HEAD: Normocephalic. EYES: No scleral icterus. No injection or drainage. NECK: Supple, trachea midline. No JVD or lymphadenopathy. CARDIOVASCULAR: Regular rate and rhythm without murmurs, gallops, or rubs. RESPIRATORY: Breath sounds equal bilaterally. No accessory muscle use. GASTROINTESTINAL: Abdomen soft, non-tender, nondistended. MUSCULOSKELETAL: No cyanosis, or edema. Left hand is dressed. Dressing is C/D/ I. R middle finger has some band aids which also look clean. Capillary refill in the hand is < 2 seconds. Sensation is intact. BACK: Nontender without obvious deformity. No CVA tenderness. Pt update on day of discharge Pain controlled. No fevers./chills. Patient eating well. Cleared for DC by hand surgery. Hospital Course (1) Dog bite of hand Plan: sp left index finger incision and drainage and repair of laceration of the left hand. Treated with IV Unasyn wound culture showed immature growth. No fungal elements seen on fungal smear, no acid fast bacilli seen gram stain negative, Wound culture grew Pasteurella Multocida. ID following Continue pain control Discharged home on 10 days of augmentin. (2) Hypotension Will give 1 liter of IV normal saline bolus. Will place on maintenance IV fluids. GI Prophylaxis: Will add PPI DVT prophylaxis: scd's, Pt Condition on Discharge: Stable Discharge Disposition: Discharge Home Discharge Time: <= 30 minutes Discharge Instructions DIET: Follow Instructions for: As Tolerated, No Restrictions Activities you can perform: Regular-No Restrictions Follow up Referrals: Hand Surgery - 2 Days with Ann Page MD PCP Follow-up - 1 Week New Medications: Amoxicillin-Clavulanate (Augmentin) 875-125 mg Tab 875 MG PO BID not for use in CrCl <30 ml/min. Infection #20 Ref 0 TAB Continued Medications: Hydrocodone-Acetaminophen (Lortab) 5-325 Mg Tab 1 TAB PO Q6H PRN PAIN #15 Ref 0 TAB (This prescription has been renewed) Discontinued Medications: Amoxicillin-Clavulanate (Augmentin) 875-125 mg Tab 875 MG PO BID not for use in CrCl <30 ml/min. Infection Days 7 Ref 0 TAB Ibuprofen (Advil) 200 Mg Tab 800 MG PO ONCE #1 Ref 0 TAB Shadi Greer MD Jun 30, 2016 13:27
--- NOTE | 2016-07-02 06:12 | MP ---
cc: ANN PAGE DATE OF SURGERY 06/28/2016 PREOPERATIVE DIAGNOSIS Dog bite left hand and index finger, open wound left hand and index finger. PROCEDURE 1. Incision and drainage abscess left hand. 2. Irrigation and debridement flexor tendon sheath left index finger. 3. A1 kathe release left index finger. SURGEON Dr. Ann Page ANESTHESIA General and local. TOURNIQUET TIME 16 minutes at 250 mmHg. SPECIMEN Cultures x 2. INDICATIONS FOR PROCEDURE Belkis Montes is a 41-year-old female who was bitten by her dog last night on 06/27/2016. She was seen in the emergency room and discharged on Augmentin after assessment of the wound and presents for followup. In the office she had purulent drainage over the radial aspect of the index finger. She elects to proceed with urgent surgical intervention. The risks were explained not limited to sepsis, wound complications, infection, need for additional surgeries, stiffness, pain, paresthesias, amputation and she elected to proceed. DESCRIPTION OF PROCEDURE The patient was identified in the preoperative holding area and the correct extremity was marked. The patient was taken to the operating room where anesthesia was induced. The left upper extremity was prepped and draped in the normal sterile fashion. The tourniquet was inflated without Esmarch to 250 mmHg. Two cultures were taken from the left hand and left index finger. The patient was given IV antibiotics. The largest bite wound was over the radial aspect of the left index finger just proximal to the metacarpophalangeal crease. This was extended over the A1 kathe in a Eder type fashion. There was significant purulence in this area as well as in the flexor tendon sheath. The decision was made to perform an A1 kathe release and to fully irrigate the flexor tendon sheath. There was also a bite wound over the middle phalanx which was opened and used to assist with the irrigation. 3 liters antibiotic saline was irrigated through the wound. The digital nerve was right at the area of the bite but was intact. The tourniquet was released, hemostasis obtained. The wound was closed loosely with chromic and packing was placed. The patient will be admitted for IV antibiotics, range of motion following the cultures and will have close followup. MD JOSE Paige/SSB /9:52 PM /5:58 AM LISSET
== END 2016-06-30 15:17 | disposition home or self-care (01) | DRG 581 ==
LOC: HSDC 16:36 → HSDI 16:40 → HSDC 21:20 → N05B 21:20
PROVIDERS: ADMIT Hospitalist; ATTEND Hospitalist
PROC: 0J9K0ZZ Drainage of Left Hand Subcutaneous Tissue and Fascia, Open Approach (ICD-10-PCS; 2016-06-28)
PROC: 0LN80ZZ Release Left Hand Tendon, Open Approach (ICD-10-PCS; principal; 2016-06-28 18:25)
DX: L02.512 Cutaneous abscess of left hand (principal); S60.572A Other superficial bite of hand of left hand, initial encounter; S60.471A Other superficial bite of left index finger, initial encounter; W54.0XXA Bitten by dog, initial encounter; Y92.9 Unspecified place or not applicable
CPT/HCPCS: 80053; 83036; 85025; 87015; 87070; 87077; 87102; 87116; 87205; 87206; J0131; J0295; J1580; J1885; J2250; J2270; J2405; J3010; J3480; J7030; J7120; Q0163

== ENCOUNTER 2017-09-07 19:21 | Emergency (ER) | payer OTHER ==
[2017-09-07] VITALS (7 sets, daily range): BP systolic 107–138; BP diastolic 60–74; PULSE 64–83; RESP 18–22; TEMP 98; O2SAT 98–99
[~2017-09-07] VITALS: Ht 160 cm; Wt 80.2 kg
--- NOTE | 2017-09-07 19:42 | PD ---
HPI Chief Complaint: Stroke Alert Time Seen by Provider: 19:29 Travel History International Travel<30 days: No Contact w/Intl Traveler<30days: No Traveled to known affect area: No History of Present Illness HPI The patient is a 42-year-old female that has a history of migraine headaches who complained of blurred vision, difficulty speaking in that she cannot complete sentences easily and numbness in her right forearm and right hand since 5:30 PM today. Initially she thought was a migraine headache, she did have a headache consistent with her previous migraines. The patient then became concerned about her difficulty speaking but was extremely anxious. She is able to speak clearly but cannot form sentences easily. The blurred vision has resolved. There is no weakness anywhere. She does not have a history of ischemic CVA in the past. [facility] Past Medical History Medical History: Denies Significant Hx Cancer: No Cardiovascular Problems: Yes Diabetes: No Diminished Hearing: No Endocrine: No Genitourinary: No Hepatitis: No Immune Disorder: No Musculoskeletal: No Neurologic: Yes Psychiatric: No Reproductive: No Respiratory: No Immunizations Current: Yes (UNKNOWN) Migraines: Yes Thyroid Disease: No Tetanus Vaccination: Unknown ?: Not Ectopic : Yes Past Surgical History Abdominal Surgery: No AICD: No Cardiac Surgery: No Ear Surgery: No Endocrine Surgery: No Eye Surgery: No Genitourinary Surgery: No Gynecologic Surgery: Yes (ectopic 1993, hysterectomy 2013) Hysterectomy: Yes Joint Replacement: No Oral Surgery: No Pacemaker: No Thoracic Surgery: No Other Surgery: Yes (right hand surgery) Social History Alcohol Use: No Tobacco Use: No Substance Use: No Allergies-Medications (Allergen,Severity, Reaction): Uncoded Allergies: ADVIL GEL (Allergy, Severe, THROAT/TOUNGE SWELLING, 06/27/16) WOOL (Allergy, Intermediate, 02/13/11) PAPER TAPE (Allergy, Unknown, BLISTERS, 01/29/03) Reported Meds & Prescriptions Reported Meds & Active Scripts Active Relpax (Eletriptan) 20 Mg Tab 20 Mg PO ONCE PRN Review of Systems ROS Limitations: Poor Historian Except as stated in HPI: all other systems reviewed are Neg Physical Exam Exam Limitations: Poor Historian Narrative GENERAL: The patient is extremely anxious, speaking normally but states she has trouble forming sentences. She seems to be forming sentences but is so anxious that it is difficult for her to answer questions. SKIN: Focused skin assessment warm/dry. No skin rash is seen. HEAD: Atraumatic. Normocephalic. EYES: Pupils equal and round. No scleral icterus. No injection or drainage. ENT: No nasal bleeding or discharge. Mucous membranes pink and moist. NECK: Trachea midline. No JVD. CARDIOVASCULAR: Regular rate and rhythm. No murmur appreciated. RESPIRATORY: No accessory muscle use. Clear to auscultation. Breath sounds equal bilaterally. GASTROINTESTINAL: Abdomen soft, non-tender, nondistended. Hepatic and splenic margins not palpable. MUSCULOSKELETAL: No obvious deformities. No clubbing. No cyanosis. No edema. NEUROLOGICAL: Awake and alert. No obvious cranial nerve deficits. Motor grossly within normal limits. Normal speech. PSYCHIATRIC: Appropriate mood and affect; insight and judgment normal. Data Data Last Documented VS Vital Signs Date Time Temp Pulse Resp B/P (MAP) Pulse Ox O2 Delivery O2 Flow Rate FiO2 09/07/17 21:30 64 18 115/63 (80) 99 Nasal Cannula 1.00 09/07/17 19:25 98.0 Orders Orders Cath For Specimen (09/07/17 19:30) Neuro Checks Q2HX12,Q4H (09/07/17 19:30) Nursing Bedside Swallow Assess .ONCE (09/07/17 19:30) Activity Bed Rest (09/07/17 19:30) Diet Npo (09/08/17 Breakfast) Prothrombin Time / Inr (Pt) (09/07/17 19:30) Act Partial Throm Time (Ptt) (09/07/17 19:30) Complete Blood Count With Diff (09/07/17 19:30) Basic Metabolic Panel (Bmp) (09/07/17 19:30) Fibrinogen (09/07/17 19:30) Creatine Kinase (Cpk) (09/07/17 19:30) Troponin I (09/07/17 19:30) Ua Includes Microscopic (09/07/17 19:30) Drug Screen, Random Urine (09/07/17 19:30) Type And Screen (09/07/17 19:30) Ct Brain W/O Iv Contrast(Rout) (09/07/17 ) Cta Brain W Iv Contrast W 3d (09/07/17 19:30) Cta Neck W Iv Contrast W 3d (09/07/17 19:30) Electrocardiogram (09/07/17 ) Beta Hcg (Quant/Titer) (09/07/17 19:30) Consult Neurology (09/07/17 19:30) Blood Glucose (09/07/17 19:30) Ecg Monitoring (09/07/17 19:30) Iv Access Insert/Monitor (09/07/17 19:30) NPO (09/07/17 19:30) Oximetry (09/07/17 19:30) Resp Oxygen Nc Stroke (09/07/17 ) Iodixanol 320 Inj (Rad Ct) (Visipaque 32 (09/07/17 19:46) Acetaminophen (Tylenol) (09/07/17 21:15) Ketorolac Inj (Toradol Inj) (09/07/17 21:15) Prochlorperazine Inj (Compazine Inj) (09/07/17 21:15) Diphenhydramine Inj (Benadryl Inj) (09/07/17 21:15) Sodium Chlor 0.9% 1000 Ml Inj (Ns 1000 M (09/07/17 21:15) Labs Laboratory Tests Test 09/07/17 19:40 09/07/17 21:25 White Blood Count 9.5 TH/MM3 Red Blood Count 4.29 MIL/MM3 Hemoglobin 13.0 GM/DL Hematocrit 39.0 % Mean Corpuscular Volume 90.8 FL Mean Corpuscular Hemoglobin 30.4 PG Mean Corpuscular Hemoglobin Concent 33.5 % Red Cell Distribution Width 12.4 % Platelet Count 313 TH/MM3 Mean Platelet Volume 8.3 FL Neutrophils (%) (Auto) 49.6 % Lymphocytes (%) (Auto) 38.5 % Monocytes (%) (Auto) 8.7 % Eosinophils (%) (Auto) 2.2 % Basophils (%) (Auto) 1.0 % Neutrophils # (Auto) 4.8 TH/MM3 Lymphocytes # (Auto) 3.6 TH/MM3 Monocytes # (Auto) 0.8 TH/MM3 Eosinophils # (Auto) 0.2 TH/MM3 Basophils # (Auto) 0.1 TH/MM3 CBC Comment DIFF FINAL Differential Comment Prothrombin Time 10.2 SEC Prothromb Time International Ratio 1.0 RATIO Activated Partial Thromboplast Time 27.3 SEC Fibrinogen 257 mg/dL Blood Urea Nitrogen 13 MG/DL Creatinine 0.67 MG/DL Random Glucose 101 MG/DL Calcium Level 8.7 MG/DL Sodium Level 137 MEQ/L Potassium Level 3.5 MEQ/L Chloride Level 104 MEQ/L Carbon Dioxide Level 22.7 MEQ/L Anion Gap 10 MEQ/L Estimat Glomerular Filtration Rate 96 ML/MIN Total Creatine Kinase 72 U/L Troponin I LESS THAN 0.02 NG/ML Human Chorionic Gonadotropin, Quant 3 MIU/ML Urine Color YELLOW Urine Turbidity CLEAR Urine pH 6.0 Urine Specific [place] LESS/EQUAL 1.005 Urine Protein NEG mg/dL Urine Glucose (UA) NEG mg/dL Urine Ketones NEG mg/dL Urine Occult Blood NEG Urine Nitrite NEG Urine Bilirubin NEG Urine Urobilinogen 0.2 MG/DL Urine Leukocyte Esterase NEG Urine Barbiturates Screen NEG Urine Amphetamines Screen NEG Urine Benzodiazepines Screen NEG Urine Cocaine Screen NEG Urine Cannabinoids Screen NEG MDM Medical Decision Making Medical Screen Exam Complete: Yes Emergency Medical Condition: Yes Medical Record Reviewed: Yes Interpretation(s) The CTA of the brain is negative in the CTA of the neck is negative. EKG shows sinus rhythm with rate of [address] elevation or depression. The CBC is normal. The basic metabolic profile is normal and the beta-hCG is 3 and the troponin I is less than 0.02. The coagulation profile is normal. The toxicology screen is negative for all substances tested. The urinalysis is normal and cultures not indicated. Differential Diagnosis Migraine headache, panic attack, ischemic CVA, stroke alert, hypo-/hyperglycemia , electrolyte disorder Narrative Course It is now 10:11 PM and the patient is resting and feels better. She wants to go home. The patient will get a prescription refill on her Relpax. Impression is migraine headache, panic attack. Diagnosis Primary Impression: Migraine headache Additional Impression: Panic attack Additional Instructions: Follow-up with your primary care physician/neurologist next week. Rest tonight and tomorrow. Med/Other Pt SpecificInfo: Prescription(s) given Scripts Eletriptan (Relpax) 20 Mg Tab 20 MG PO ONCE Y for MIGRAINE HEADACHE, #6 TAB 0 Refills Prov: Pawan Greco MD 09/07/17 Disposition: DISCHARGE HOME Condition: Stable Pawan Greco MD Sep 07, 2017 19:41
--- NOTE | 2017-09-07 19:44 | RADRPT ---
EXAM DATE: 09/07/2017 7:39 PM EDT AGE/SEX: 42 years / Female INDICATIONS: Stroke alert. Right blurred vision. Right arm and hand tingling and numbness. CLINICAL DATA: This is the patient's initial encounter. Patient reports that signs and symptoms have been present for 1 day and indicates a pain score of 0/10. MEDICAL/SURGICAL HISTORY: None. None. RADIATION DOSE: 47.53 CTDI (mGy) COMPARISON: No prior exams available for comparison. TECHNIQUE: CT of the head without contrast. Using automated exposure control and adjustment of the mA and/or kV according to patient size, radiation dose was kept as low as reasonably achievable to ob tain optimal diagnostic quality images. FINDINGS: Cerebrum: The ventricles are normal for age. No evidence of midline shift, mass lesion, hemorrhage or acute infarction. No extraaxial fluid collections are seen. Posterior Fossa: The cerebellum and brainstem are intact. The 4th ventricle is midline. The cerebe llopontine angle is unremarkable. Extracranial: The visualized portion of the orbits is intact. Skull: The calvaria is intact. No evidence of skull fracture. CONCLUSION: 1. No acute intracranial abnormalities. Electronically signed by: Byron Cano MD 09/07/2017 7:42 PM EDT
[2017-09-07] MEDS ORDERED: IODIXANOL 320 MG/ML 10 ML VIAL (for Rad CT) IVCONTRAST ONE (19:46)
[2017-09-07 19:58] LABS: AUTOMATED NEUTROPHIL # 4.8 TH/MM3 (1.8-7.7); BASOPHIL # 0.1 TH/MM3 (0-0.2); EOSINOPHIL # 0.2 TH/MM3 (0-0.4); EOSINOPHIL % 2.2 % (0.0-4.0); LYMPH % 38.5 % (9.0-44.0); LYMPHOCYTE # 3.6 TH/MM3 (1.0-4.8); MEAN CELL VOLUME 90.8 FL (80.0-100.0); MEAN CORPUSCULAR HEMOGLOBIN 30.4 PG (27.0-34.0); MEAN CORPUSCULAR HGB CONC 33.5 % (32.0-36.0); MEAN PLATELET VOLUME 8.3 FL (7.0-11.0); MONO % 8.7 % (0.0-8.0); MONOCYTE # 0.8 TH/MM3 (0-0.9); NEUT % 49.6 % (16.0-70.0); PLATELET COUNT 313 TH/MM3 (150-450); RED BLOOD COUNT 4.29 MIL/MM3 (4.00-5.30); RED CELL DISTRIBUTION WIDTH 12.4 % (11.6-17.2); WHITE BLOOD COUNT 9.5 TH/MM3 (4.0-11.0)
[2017-09-07 20:14] LABS: CHLORIDE 104 MEQ/L (98-107); SODIUM (NA) 137 MEQ/L (136-145)
[2017-09-07 20:17] LABS: BICARBONATE 22.7 MEQ/L (21.0-32.0); BLOOD UREA NITROGEN 13 MG/DL (7-18); CALCIUM 8.7 MG/DL (8.5-10.1); GLUCOSE,RANDOM 101 MG/DL (74-106)
[2017-09-07 20:18] LABS: PROTHROMBIN TIME - PATIENT 10.2 SEC (9.8-11.6)
[2017-09-07 20:21] LABS: CREATININE 0.67 MG/DL (0.50-1.00); GLOMERULAR FILTRATION RATE 96 ML/MIN (>89)
[2017-09-07 20:25] LABS: TROPONIN I LESS THAN 0.02 NG/ML (0.02-0.05)
--- NOTE | 2017-09-07 20:27 | RADRPT ---
EXAM DATE: 09/07/2017 8:06 PM EDT AGE/SEX: 42 years / Female INDICATIONS: Stroke alert. Right blurred vision. Right arm and hand tingling and numbness. CLINICAL DATA: This is the patient's initial encounter. Patient reports that signs and symptoms have been present for 1 day and indicates a pain score of 0/10. MEDICAL/SURGICAL HISTORY: None. None. RADIATION DOSE: 42.25 CTDI (mGy) ; Combined studies COMPARISON: No prior exams available for comparison. TECHNIQUE: Volumetric scanning was performed using a multi-row detector CT scanner during bolus infu rafaela of 100 ml Visipaque 320 (iodixanol) nonionic water-soluble contrast as a cumulative dose for mu ltiple exams. The data was post processed with a variety of visualization algorithms including full volume maximum intensity projection, multi-planar sliding thin slab reformation, curved planar refor mation, and surface rendering techniques. Using automated exposure control and adjustment of the mA and/or kV according to patient size, radiation dose was kept as low as reasonably achievable to obtai n optimal diagnostic quality images. FINDINGS: There is excellent visualization of the major intracranial arteries out to the second-order branch ve ssels. There is no evidence for aneurysm, vessel truncation or stenosis, and no evidence for vascula r malformation. CONCLUSION: 1. Negative CTA brain. Electronically signed by: Byron Cano MD 09/07/2017 8:26 PM EDT
--- NOTE | 2017-09-07 20:28 | RADRPT ---
EXAM DATE: 09/07/2017 8:20 PM EDT AGE/SEX: 42 years / Female INDICATIONS: Stroke alert. Right blurred vision. Right arm and hand tingling and numbness. CLINICAL DATA: This is the patient's initial encounter. Patient reports that signs and symptoms have been present for 1 day and indicates a pain score of 0/10. MEDICAL/SURGICAL HISTORY: None. None. RADIATION DOSE: 42.25 CTDI (mGy) ; Combined studies COMPARISON: No prior exams available for comparison. TECHNIQUE: Volumetric scanning was performed using a multirow detector CT scanner during bolus infus ion of 100 ml Visipaque 320 (iodixanol) nonionic water-soluble contrast as a cumulative dose for mul tiple exams. The data was postprocessed with a variety of visualization algorithms including full-v olume maximum intensity projection, multiplanar sliding thin-slab reformation, curved-planar reformat ion, and surface-rendering techniques. Using automated exposure control and adjustment of the mA and /or kV according to patient size, radiation dose was kept as low as reasonably achievable to obtain o ptimal diagnostic quality images. Elevated flow velocities and ICA/CCA ratios have been found to correlate with increased degrees of ve ssel stenosis, calculated as percentage of diameter relative to a normal segment of distal ICA/CCA. FINDINGS: There is no carotid stenosis or significant plaque formation bilaterally. Great vessel origins are pa tent. Vertebral arteries are patent within the neck. No aneurysm or dissection. CONCLUSION: 1. Negative CTA carotids. Electronically signed by: Byron Cano MD 09/07/2017 8:27 PM EDT
[2017-09-07] MEDS ORDERED: PROCHLORPERAZINE INJ 10 MG/2 ML VIAL IVP ONE (21:15)
[2017-09-07] MEDS ORDERED: KETOROLAC TROMETHAMINE 30 MG/ML (IVP) VIAL IVP ONE (21:15)
[2017-09-07] MEDS ORDERED: diphenhydrAMINE HCL 50 MG/ML VIAL IVP ONE (21:15)
[2017-09-07] MEDS ORDERED: SODIUM CHLOR 0.9% 1000 ML INJ 1,000 ML IV ONE (21:15)
[2017-09-07] MEDS ORDERED: ACETAMINOPHEN 325 MG TAB PO ONE (21:15)
[2017-09-07 21:42] LABS: BILIRUBIN, URINE NEG (NEG); BLOOD, URINE NEG (NEG); GLUCOSE,URINE NEG (NEG); KETONE, URINE NEG (NEG); NITRITE,URINE NEG (NEG); URINE COLOR YELLOW (YELLW/STRAW); URINE LEUKOCYTE ESTERASE NEG (NEG)
[2017-09-07] MEDS ORDERED: RELP20TA PO (22:08)
[2017-09-07 22:15] LABS: SQUAMOUS EPITHELIAL CELL URINE 0-5 /hpf (0-5)
--- NOTE | 2017-09-08 13:29 | EKG ---
Date Performed: 09/07/2017 Time Performed: 20:01:22 PTAGE: 42 years EKG: Sinus rhythm Nonspecific ST-T changes with artifact ABNORMAL ECG NO PREVIOUS TRACING DOCTOR: Phani Mcgill Interpretating Date/Time 09/08/2017 13:28:36
== END 2017-09-07 22:59 | disposition home or self-care (01) ==
LOC: PHED 19:21
DX: G43.909 Migraine, unspecified, not intractable, without status migrainosus (principal); F41.0 Panic disorder [episodic paroxysmal anxiety]; R94.31 Abnormal electrocardiogram [ECG] [EKG]; F41.9 Anxiety disorder, unspecified; Z88.6 Allergy status to analgesic agent; Z79.899 Other long term (current) drug therapy
CPT/HCPCS: 70450; 70496; 70498; 80048; 80307; 81001; 82550; 84484; 84702; 85025; 85384; 85610; 85730; 86850; 86900; 86901; 93005; 96361; 96374; 96375; 99285; J0780; J1200; J1885; J7030; Q9967